=== PATIENT | female | born 1995 | race Caucasian/White ===

== ENCOUNTER 2016-04-27 18:27 | Emergency (ER) | payer OTHER ==
[2016-04-27 18:45] VITALS: BP 143/82; PULSE 91; RESP 14; TEMP 98.8; O2SAT 99
--- NOTE | 2016-04-27 18:48 | UCPHY ---
H & P Time Seen by Provider: 04/27/16 18:35 Patient Type: New HPI/ROS: CHIEF COMPLAINT: Rash to upper body HISTORY OF PRESENT ILLNESS: 21-year-old immunocompetent female with no concurrent medication use complaining of multiple discrete itching lesions to her upper body only since late March 2016 after starting to use Dial antibacterial soap. No intraoral lesions. Lesions are not tender. No genital lesions. No nausea vomiting or diarrhea. No urinary complaints. No fever or chills. No flu-like symptoms. PHYSICAL EXAM (Prior to examination, patient consented to physical exam, hands were washed and my usual and customary physical exam procedures followed) (Exam with female nurse Lashanda at bedside) 1) GENERAL: Well-developed, well-nourished, alert and oriented. Appears to be in no acute distress. Smiling, shakes my hand appears well 2) HEAD: Normocephalic 3) HEENT: no injection 4) LUNGS: Breathing comfortably. 5) SKIN: On the patient's torso anterior and posteriorly including arms and excluding the neck and face she has multiple discrete pink lesions with of different shapes some which are excoriated. No vesicles. They do not followed dermatomal distribution. There are nontender. There are non weeping. There is no signs of cellulitis, no erythema or induration. Allergies/Adverse Reactions: No Known Allergies Allergy (Unverified 04/27/16 18:42) Home Medications: Medication Instructions Recorded Hydrocortisone 1% [Hydrocortisone 1 aleshia TP BID #30 g 04/27/16 1% cream (*)] MDM/Departure - MDM ED Course/Re-evaluation: The specific etiology of this patient's rash is not completely clear at this time. We discussed a multiple possibilities including, but not limited to contact dermatitis, malignancy, allergic reaction. Doubt Herrera-Gabriel, scabies, cellulitis, infectious etiology. Recommend patient stop using the Dial antibacterial soap and using unscented soap, moisturizer and similar with no dye. I have also recommended topical cortisone under follow-up with dermatology recommendation. She feels comfortable with this plan. My usual and customary dermatologic precautions and instructions have been provided - Depart Disposition: Home, Routine, Self-Care Clinical Impression: Rash Condition: Good Instructions: Acute Rash (ED) Additional Instructions: Return to the Urgent Care go to the ER if you develop new or worsening symptoms , definitely few developed flu-like symptoms, rash to your genitals, rash to her mouth or any other symptoms that concern you. Use unscented soap, detergents and moisturizers with no dyes. Prescriptions: Hydrocortisone 1% [Hydrocortisone 1% cream (*)] 1 aleshia TP BID #30 g Referrals: Milo Espinosa MD [Medical Doctor] - 5-7 days, call for appt. (Dr. Osito Espinosa is a [employer] machine operator) - PQRS PQRS Measurement: n/a
== END 2016-04-27 18:54 | disposition home or self-care (01) ==
LOC: CED 18:27
DX: R21 Rash and other nonspecific skin eruption (principal)
CPT/HCPCS: G0463-PO